=== PATIENT | female | born 1940 | race Caucasian/White ===

== ENCOUNTER 2016-03-04 09:45 | Inpatient (IN) | payer MEDICARE, OTHER ==
[~2016-03-04] VITALS: Ht 157.5 cm; Wt 38.6 kg
--- NOTE | ~2016-03-04 | HEMODYNAMI ---
PATIENT:DOMINGUEZ PEOPLES MEDICAL RECORD: [id number] : 44 LOCATION:D.ICU D.ICU- [facility]# [id number] ADMISSION DATE: 03/04/16 Generatedon:03/04/201623:14 Patient name: DOMINGUEZ PEOPLES Patient #: [id number] : 1940 Date of study: 03/04/2016 Page: Of Hemodynamic Procedure Report Patient Data Patient Demographics Procedure consent was obtained First Name: DOMINGUEZ Gender: Female Last Name: RICHELLE : 1940 [facility] Initial: Inna Age: 75 year(s) Patient #: [id number] Race: Ethnicity: or SSN: [id number] Additional ID: [id number] Contact details Address: [address] [place] [address] State: [place] City: [place] Zip code: [address] Past Medical History Allergies Allergen Reaction Date Comments Reported Other allergy 03/04/2016 Sulfa, Surgical Tape Admission Admission Data Admission Date: 03/04/2016 Admission Time: 14:55 Arrival Date: 03/04/2016 Arrival Time: 14:55 Admit Source: Other Insurance Payor: Medicare Room #: D.ICU Height (in.): 62 BSA: 1.33 (m2) Height (cm.): 157.48 BMI: 15.55 (kg/m2) Weight (lbs.): 85 Weight (kg.): 38.56 Lab Results Lab Result Date: 03/04/2016 Lab Result Time: 0:00 Biochemistry Name Units Result Min Max BUN mg/dl 12 --(-*--)-- 7 18 Creatinine mg/dl 1.1 --(--*-)-- 0.6 1.3 CBC Name Units Result Min Max Hemoglobin g/dl 12 *-(----)-- 13.5 17.5 Procedure Procedure Types Cath Procedure Diagnostic Procedure Temporary Pacemaker Procedure Description Procedure Date Procedure Date: 03/04/2016 Procedure Start Time: 22:42 Procedure End Time: 23:07 Procedure Staff Name Function Tomas Noel MD Performing Physician Kimmy Del Real RT Scrub Rojas Ruby RN Nurse Vianey Delgado RT Monitor Indication Angina Procedure Data Cath Procedure Fluoroscopy Diagnostic fluoroscopy Total fluoroscopy Time: 1.3 time: 1.3 min min Diagnostic fluoroscopy Total fluoroscopy dose: 55 dose: 55 mGy mGy Contrast Material Contrast Material Type Amount (ml) Isovue 370 0 Entry Location Entry Primary Successful Side Size Upsize Upsize Entry Closure Succes sful Closure Location (Fr) 1 (Fr) 2 (Fr) Remarks Device Remarks Femoral Right 6 Fr vein Short Femoral Right 6 Fr artery Short Procedure Medications Medication Administration Route Dosage Epinephrine I.V. 1 mg Sodium Bicarb I.V. 50 meq Epinephrine I.V. 1 mg Sodium Bicarb I.V. 50 meq Epinephrine I.V. 1 mg Hemodynamics Rest BSA: 1.33 (m2) HGB: 12 (g/dl) O2 Consumption: Estimated: 119.17 (ml/min) O2 Cons umption indexed: Estimated:89.6 (ml/min/m) Heart Rate: 65 (bpm) Snapshots Pre Cath Intra NCS Post Cath Vital Signs Time Heart Resp NIBP Rhythm Pain Sedation Rate (ipm) (mmHg) Status Level (bpm) 22:34:29 51 15 Measuring NSR 0 (11) , 10(A) No pain 22:35:51 51 23 Time NSR 0 (11) , 10(A) Exceeded No pain 22:40:50 49 15 Measuring NSR 0 (11) , 10(A) No pain 22:41:41 49 15 Time NSR 0 (11) , 10(A) Exceeded No pain 22:45:51 87 91 Time NSR 0 (11) , 10(A) Exceeded No pain 22:47:29 55 87 122/31(47) NSR 0 (11) , 10(A) No pain 22:52:28 108 38 Measuring NSR 0 (11) , 10(A) No pain 22:53:52 118 138 Time NSR 0 (11) , 10(A) Exceeded No pain 22:58:04 51 15 Time NSR 0 (11) , 10(A) Exceeded No pain 23:03:03 29 Measuring NSR 0 (11) , 10(A) No pain 23:04:27 23 Time NSR 0 (11) , 10(A) Exceeded No pain 23:09:26 27 Measuring NSR 0 (11) , 10(A) No pain 23:10:50 Time NSR 0 (11) , 10(A) Exceeded No pain Medications Time Medication Route Dose Verified Delivered Reason Notes Effectiven ess by by 22:46:18 Epinephrine I.V. 1 mg Rojas Rojas Per Tung Ruby RN physician RN 22:47:31 Sodium I.V. 50 Rojas Rojas Per Bicarb meq Tung Ruby RN physician RN 22:48:11 Epinephrine I.V. 1 mg Rojas Rojas Per Tung Ruby RN physician RN 22:50:50 Epinephrine I.V. 1 mg Rojas Rojas Per Tung Ruby RN physician RN 22:51:47 Sodium I.V. 50 Rojas Rojas Per Bicarb meq Tung Ruby RN physician scrum master Log Time Note 22:00:15 Rojas Ruby RN sent for patient. Start room use. 22:20:48 Informed consent obtained and on chart 22:20:54 Diagnostic Cath Status : Elective 22:21:15 Indication : Angina 22:21:31 Arrival Date: 03/04/2016 2:55:00 PM 22:21:39 Insurance Payor : Medicare 22:21:40 Admit Source: Other 22:22:07 Lab Result : Hemoglobin 12 g/dl 22:22:07 Lab Result : BUN 12 mg/dl 22:22:07 Lab Result : Creatinine 1.1 mg/dl 22:22:21 Time tracking: Regular hours 22:22:26 Plan of Care:Hemodynamics will remain stable., Cardiac rhythm will remain stable., Comfort level will be maintained., Respiratory function will remain adequate., Patient/ family verbilizes understanding of procedure., Procedure tolerated without complication., Recovers from procedure without complications.. 22:22:37 Patient received from ED to CCL 1 Alert and oriented. Tansferred to table in Supine position. 22:22:40 Warm blankets applied, and jaskaran hugger turned on for patient comfort. 22:22:40 Correct patient and procedure confirmed by team. 22:22:41 ECG and BP/O2 sat monitors applied to patient. 22:32:40 Vital chart was started 22:36:18 Baseline sample Acquired. 22:36:37 Full Disclosure recording started 22:36:43 H&P Date Dictated: 03/04/2016 New H&P dictated by physician.. 22:36:44 Pre-procedure instructions explained to patient. 22:36:45 Pre-op teaching completed and patient verbalized understanding. 22:36:46 Family in waiting room. 22:36:48 Patient NPO since Midnight. 22:37:05 Patient allergic to Other allergySulfa, Surgical Tape 22:37:17 Is the patient allergic to Iodine/contrast media? Unknown. 22:38:04 Patient uncosious and intubated 22:38:10 ACC The patient was administered the following blood thiners within the last 24 hours: Unknown 22:38:12 Patient diabetic? Unknown. 22:38:16 Was the patient premedicated? Unknown 22:38:17 Is patient on blood thinner?Unknown 22:38:28 Previous problem with sedation/anesthesia? Unknown ? 22:38:30 Snore? Unknown 22:38:31 Sleep apnea? Unknown 22:38:33 Deviated septum? Unknown 22:38:34 Opens mouth fully? Unknown 22:38:35 Sticks out tongue? Unknown 22:38:43 Dentures? Unknown ? 22:38:54 Pre procedure: right dorsailis pedis pulse Doppler 22:38:57 Patient pain scale 0/10 ?. 22:39:09 IV patent on arrival in right forearm, left antecubital with 0.9% NaCl at [facility]. 22:39:12 Lab results completed and on chart. 22:39:16 Bilateral groins area was prepped with chlora-prep and draped in sterile fashion 22:39:17 Alarms reviewed by R. N. 22:39:17 Sharps counted by scrub and verified by R.N. 22:40:31 Use device set Femoral PCI 22:40:33 Acist Syringe opened to sterile field. 22:40:33 Acist Hand Control opened to sterile field. 22:40:33 Bag Decanter opened to sterile field. 22:40:34 Cardinal Cath Pack opened to sterile field. 22:40:35 Terumo 6Fr [place] Sheath opened to sterile field. 22:40:35 St Tay 260cm J .035 wire opened to sterile field. 22:40:36 Merit BasixCompak Inflation Kit opened to sterile field. 22:40:36 Acist Manifold opened to sterile field. 22:40:37 Tegaderm 4 x 4 opened to sterile field. 22:41:10 Physician arrived 22:41:10 --------ALL STOP TIME OUT------ 22:41:11 Final Timeout: patient, procedure, and site verified with staff and physician. All members of the team are in agreement. 22:41:12 Bilateral groins site verified by team. 22:41:16 Physical assessment completed. ASA score P 5 - A moribund patient who is not expected to survive without the operation as per Tomas Noel MD. 22:41:19 Sedation plan: IV Moderate Sedation Versed, Fentanyl 22:42:24 Procedure started. 22:42:29 Local anesthetic to right femoral artery with Lidocaine 2% by Tomas Noel MD.INITIAL ACCESS ONLY 22:42:43 Zero performed for pressure channel P1 22:42:50 Zero performed for pressure channel P1 22:42:55 Zero performed for pressure channel P1 22:43:00 Zero performed for pressure channel P1 22:43:05 Zero performed for pressure channel P1 22:44:39 A 6 Fr Short sheath was inserted into the Right Femoral vein 22:44:51 5Fr J Tip Temporary Pacing Catheter opened to sterile field. 22:44:52 A 6 Fr Short sheath was inserted into the Right Femoral artery 22:44:53 Temporary pacer inserted 22:45:47 Dr Noel noted no cardiac motion; Began CPR 22:46:18 Epinephrine 1 mg I.V. was given by Rojas Ruby RN; Per physician; 22:47:31 Sodium Bicarb 50 meq I.V. was given by Rojas Ruby RN; Per physician; 22:48:11 Epinephrine 1 mg I.V. was given by Rojas Ruby RN; Per physician; 22:50:50 Epinephrine 1 mg I.V. was given by Rojas Ruby RN; Per physician; 22:51:47 Sodium Bicarb 50 meq I.V. was given by Rojas Ruby RN; Per physician; 22:56:52 CPR ended; Cardiac function not recovered 22:58:41 Procedure type changed to Cath procedure, Diagnostic procedure, Temporary Pacemaker 23:00:03 Patient Weight : 38.56 kg 23:00:15 Patient Height : 157.48 cm 23:06:05 Procedure ended.(Physican Out) 23:06:17 Fluoroscopy time 01.30 minutes. 23:06:27 Fluoroscopy dose: 55 mGy 23:06:27 Flurop Dose total: 55 23:06:30 Contrast amount:Isovue 370 0ml. 23:06:32 Sharps counted by scrub and verified by RDbNDb 23:07:17 Procedure and supply charges have been captured, reviewed, submitted and are correct. 23:07:22 Procedure ended. 23:07:22 Full Disclosure recording stopped 23:07:34 End room use (Document Last) 23:14:49 Vital chart was stopped Device Usage Item Name Manufacture Quantity Catalog Hospital Part Current Minimal Lot# / Number Charge Number Stock Stock Serial# Code Acist Acist 1 57535 603735 757343 [id number] 20 Syringe Medical Systems Inc Acist Hand Acist 1 66193 123265 770889 832419 5 Control Medical Systems Inc Bag Microtek 1 2002S 583729 68098 601255 5 Decanter Medical Inc. Cardinal Cardinal 1 [id number] 283150 40582 574336 5 Cath Pack Health Terumo 6Fr Terumo 1 [id number] 614162 444835 176517 [address] Tay 1 075881 599603 228953 205847 30 260cm J .035 wire Merit Merit 1 [id number] 537525 058460 000701 15 BasixCompak Medical Inflation Kit Acist Acist 1 90524 854032 657446 181109 5 Manifold Medical Systems Inc Tegaderm 4 3M 1 1626W 815521 436827 451821 5 x 4 5Fr J Tip Cortez 1 [id number] 951118 19511 605824 2 Temporary Lifesciences Pacing Catheter Signature Audit [place] Stage Time Signature Unsigned Intra-Procedure 03/04/2016 Vianey Delgado 11:14:46 PM RT(R) Signatures Monitor : Vianey Delgado RT Signature : Date : Time : [facility] [address] [facility] [place] [address]
[~2016-03-04 09:45] MED LIST: BENZONATATE200 MG PO; LIPITOR10 MG PO; NORVASC5 MG PO; PLAVIX75 MG PO; UNISOM; XANAX0.5 MG PO
[2016-03-04 11:22] LABS: BASOPHILS 0.2 % (0.0-2.0); EOSINOPHILS 0.4 % (0-7); HEMATOCRIT 37.4 % (36.0-48.0); IMMATURE GRANULOCYTES 0.2 % (0-5); LYMPHOCYTES 5.8 % (15-50); MCH 32.3 pg (26.0-34.0); MCHC 32.1 g/dL (31.0-37.0); MCV 100.8 fL (80.0-100.0); MEAN PLATELET VOLUME 9.9 fL (7.4-10.4); MONOCYTES 10.4 % (2-11); PLATELET COUNT 181 10x3/uL (130-400); RBC 3.71 10x6/uL (4.00-5.40); RDW 12.7 % (11.5-14.5); WBC 8.2 10x3/uL (4.8-10.8)
[2016-03-04 11:53] LABS: ALBUMIN 3.4 g/dL (3.4-5.0); ANION GAP 14.9 mmol/L (8-16); BILIRUBIN - TOTAL 0.7 mg/dL (0.2-1.3); CALCIUM 9.3 mg/dL (8.5-10.1); CARBON DIOXIDE 26.8 mmol/L (21.0-32.0); CREATININE - SERUM 1.1 mg/dL (0.6-1.3); POTASSIUM - SERUM 3.7 mmol/L (3.5-5.1)
[2016-03-04 18:02] LABS: CKMB 289.3 U/L (0.0-3.6)
[2016-03-04 18:10] LABS: CREATINE KINASE 1122 UL (21-215); TROPONIN-I 18.848 ng/mL (0.000-0.060)
[2016-03-04 18:28] VITALS: BP 88/62; Ht 157.5 cm; Wt 38.6 kg
--- NOTE | 2016-03-04 20:25 | NUR ---
SPOKE WITH TY HANDLEY APN CARTON STAPLER FOR DR FREGOSO, ASKED IF WE CAN CONTINUE PTS HOME MEDICATION OF XANAX, TY STATED IF ITS OK WITH DR ZUNIGA THEN ITS OK WITH HER.
--- NOTE | 2016-03-04 20:30 | NUR ---
SPOKE WITH DR ZUNIGA, STATES OK TO GIVN PTS HOME MEDICATION OF XANAX.
--- NOTE | 2016-03-04 20:42 | NUR ---
HS MEDS GIVEN, XANAX 0.5 MG GIVEN FOR ANXIEYT.
--- NOTE | 2016-03-04 21:20 | NUR ---
RT AND NURSE ENTERD ROOM TO GIVE UPDRAFT TREATMENT. PT WITH SHALLOW BREATHING AND GASPING FOR AIR, O2 AT 2 LITER VIA NC. UNABLE TO AROUSE TO VERBAL STIMULI OR STERNAL RUB, CODE BLUE CALLED.
[2016-03-04 21:39] VITALS: BP 110/73
--- NOTE | 2016-03-04 21:51 | NUR ---
SON AT NURSES STATION, NOTIFIED HIM OF CHANGE IN PT CONDITION, WALKED SON TO E.R.
[2016-03-04 22:08] LABS: BASOPHILS 0.2 % (0.0-2.0); EOSINOPHILS 0.3 % (0-7); HEMATOCRIT 35.8 % (36.0-48.0); IMMATURE GRANULOCYTES 1.5 % (0-5); LYMPHOCYTES 24.4 % (15-50); MCH 32.4 pg (26.0-34.0); MCHC 30.7 g/dL (31.0-37.0); MEAN PLATELET VOLUME 10.3 fL (7.4-10.4); MONOCYTES 4.5 % (2-11); NEUTROPHILS 69.1 % (40-80); PLATELET COUNT 191 10x3/uL (130-400); RDW 12.6 % (11.5-14.5)
[2016-03-04 22:11] LABS: MCV 105.3 fL (80.0-100.0); WBC 14.7 10x3/uL (4.8-10.8)
[2016-03-04 22:14] LABS: APTT 43.8 SECONDS (22.8-39.4); INR 1.41 (0.85-1.17); PROTIME 17.2 SECONDS (11.6-15.0)
--- NOTE | 2016-03-04 22:20 | NUR ---
PT TO COMPUTER NETWORKING INSTRUCTOR ADJUNCT AT THIS TIME,
[2016-03-04 22:34] LABS: CALCIUM 8.1 mg/dL (8.5-10.1); CHLORIDE - SERUM 101 mmol/L (98-107); CKMB 231.7 U/L (0.0-3.6); MAGNESIUM - SERUM 2.5 mg/dL (1.8-2.4); PHOSPHOROUS 8.5 mg/dL (2.5-4.9); POTASSIUM - SERUM 4.1 mmol/L (3.5-5.1); SODIUM 136 mmol/L (136-145); UREA NITROGEN 14 mg/dL (7-18)
[2016-03-04 22:37] LABS: CALC OSMOLALITY 284 mosm/kg (275-300); CREATININE - SERUM 1.6 mg/dL (0.6-1.3); GLUCOSE 318 mg/dL (74-106); eGFR NON AFRICAN AMERICAN 33 mL/min (90-120)
[2016-03-04 22:38] LABS: CREATINE KINASE 1114 UL (21-215)
[2016-03-04 22:39] LABS: CARBON DIOXIDE 8.8 mmol/L (21.0-32.0); TROPONIN-I 28.474 ng/mL (0.000-0.060)
--- NOTE | 2016-03-04 23:25 | NUR ---
THEATER MANAGER [employer] NOTIFIED OF PT
--- NOTE | 2016-03-04 23:30 | NUR ---
GISSELL NOTIFIED OF PT
--- NOTE | 2016-03-04 23:35 | NUR ---
HOME NOTIFIED OF PT
--- NOTE | 2016-03-05 00:45 | NUR ---
HOME HERE FOR PT
--- NOTE | 2016-03-05 01:19 | NUR ---
2252 PT PRONOUNCED AT THIS TIME,
--- NOTE | 2016-03-06 14:44 | EC ---
PATIENT:DOMINGUEZ PEOPLES DATE OF SERVICE: 03/04/16 SEX: F MEDICAL RECORD: [id number] DATE OF : 44 LOCATION:D.[facility] D.ICU AGE OF PATIENT: 75 ADMISSION DATE: 03/04/16 REFERRING PHYSICIAN: INTERPRETING PHYSICIAN: ISHMAEL CHAVEZ MD ECHOCARDIOGRAM REPORT ECHO CHARGES 4 ECHO COMPLETE CLINICAL DIAGNOSIS: NEW ONSET OF CHF ECHOCARDIOGRAPHIC MEASUREMENTS (adult normal given) AC root (d.<3.7cm) 2.9 LV Septum d (<1.2 cm> 1.2 Valve Excursion 1.2 LV Septum (systole) 1.4 Left Atria (s.<4.0cm> 3.6 LVPW d(<1.2cm) 1.2 RV (d.<2.3cm) 2.6 LVPW (sytole) 1.3 LV diastole(<5.6CM) 5.0 MV E-F(>70mm/sec) LV systole 4.2 LVOT Diameter 1.1 MV exc.(>10mm) 0.9 Est.ejection fraction (50-75%) Pericardial Effusion N DOPPLER: LVIT A 112 E 106 LA RVSP 55 LVOT 141 AOP1/2T Asc. Ao 154 RVOT 65 RA PA 108 AV Gradient Peak 9.47 AV Mean 4.7 AV Area 1.0 MV Gradient Peak 7.93 MV Mean 3.09 MV Area COMMENTS: Aquatic Centre Manager: Familia WALTERS Concessions Manager:Yessenia Ibarra TAPE# PACS DATE OF SERVICE: 03/04/2016 Adequate 2D echo, color flow and spectral Doppler, and M-mode. No LVH. LV internal dimensions are normal. Wall motion is mildly globally overall reduced ____ 35% to 40%. Aortic valve sclerosis without stenosis on Doppler interrogation. The left atrium is normal at 3.6 cm. Mitral valve shows no prolapse. Marked severe MR. Right-sided chamber is grossly normal. Moderate TR. TRANSINT:[id number] Voice Confirmation ID: [id number] DOCUMENT ID: [id number] ECHOCARDIOGRAM REPORT [id number] DOMINGUEZ PEOPLES ISHMAEL CHAVEZ MD at 9025 CC: [id number] DICTATION DATE: 03/04/16 1525 TUBE WRAPPER: 03/04/16 1606 DIS IN 03/04/16 [facility] [address] [place] [address]
--- NOTE | 2016-03-06 16:23 | OP ---
PATIENT NAME: DOMINGUEZ PEOPLES MEDICAL RECORD: [id number] :44 LOCATION:D.ICU D.ICU- ADMISSION DATE:03/04/16 SURGEON: MAURIZIO MORELOS MD DATE OF OPERATION: 03/04/2016 PROCEDURES: 1. Temporary pacemaker insertion. Mrs. Peoples was brought to the cardiac catheterization after a code procedure. She regained spontaneous heart rate and blood pressure; however, when on the cardiac catheterization table, she rapidly lost spontaneous heart rate and blood pressure went into PEA, temporary pacemaker was placed and she was paced for a short time. She then lost spontaneous heart rate and blood pressure, CPR was undertaken. With CPR, she did not maintain heart rate and blood pressure and on the cardiac catheterization table prior to the procedure being done. TRANSINT:[id number] Voice Confirmation ID: [id number] DOCUMENT ID: [id number] MAURIZIO MORELOS MD at 1623 CC: [id number] DICTATION DATE: 03/04/16 2300 SALES EXPERT HOME THEATER: 03/04/16 2351 DIS IN 03/04/16 [facility] [address] [place] [address]
--- NOTE | 2016-03-06 16:23 | CN ---
PATIENT NAME:DOMINGUEZ PEOPLES MEDICAL RECORD: [id number] : 44 LOCATION:D.ICUD.ICU- ADMIT DATE: 03/04/16 ACCOUNT: [id number] CONSULTING PHYSICIAN: MAURIZIO MORELOS MD REFERRING PHYSICIAN: KATELYNN FREGOSO MD DATE OF CONSULTATION: 03/04/2016 DIAGNOSES: 1. Non-Q-wave myocardial infarction. 2. Pneumonia. 3. Respiratory failure. 4. Status post code. HISTORY OF PRESENT ILLNESS: Mrs. Peoples presents with shortness of breath and respiratory failure, thought to have pneumonia and troponin came back at 18. She had chest pain last night. No chest pain today. She was stable from a respiratory standpoint, she then became agitated and quickly lost heart rate and blood pressure. ACLS measures were undertaken. She was intubated. CPR was undertaken. She was transferred to the ER. She regained spontaneous heart rate and blood pressure. She then lost it again. A second round of epinephrine and bicarbonate were given in the ER along with CPR. She once again regained spontaneous heart rate and blood pressure. She has history of peripheral vascular disease. No history of cardiac disease. No history of myocardial infarction. She has AAA repair as well as aortobifemoral. Her EKG is sinus rhythm, ST-T abnormalities and ST depression in the lateral leads. PHYSICAL EXAMINATION: GENERAL APPEARANCE: Well-nourished, well-developed, appears stated age. Level of distress, comfortable. PSYCHIATRIC: Mental status, alert, normal affect. Orientation, oriented to time, place and person. EYES: Lids and conjunctiva, noninjected. No discharge, no pallor. ENT: Lips, teeth, gums, normal dentition. Oropharynx, no cyanosis, no pallor. NECK: Carotid arteries, bilateral normal upstroke, no bruits, no thrills. JUGULAR VEINS: No jugular venous pressure or distention. CERVICAL LYMPH NODES: Nontender, nonenlarged. THYROID: Not enlarged. Nontender. No nodules. LUNGS: Respiratory effort, unlabored. CHEST: Normal curvature. No thoracic deformity. No chest wall tenderness. Percussion, resonant. Auscultation, clear. No wheezes, no rales, no rhonchi. CARDIOVASCULAR: Precordial exam, nondisplaced. No heaves or pericardial thrills. Rate and rhythm, regular. Heart sounds, normal S1, normal S2. No S3, no gallop, no rub. Systolic murmur, not heard. Diastolic murmur, not heard. EXTREMITIES: No cyanosis, no edema. Peripheral pulses, full and equal in all extremities, except as noted. No bruits appreciated. ABDOMEN: Soft, nondistended. Normal aorta. No bruit. Nontender. No masses. Liver, nontender, no hepatomegaly. Spleen, nontender, no splenomegaly. MUSCULOSKELETAL: No joint tenderness. No joint swelling. No erythema. NEUROLOGICAL: Normal gait, normal strength, normal tone. SKIN: Warm and dry. REVIEW OF SYSTEMS: The patient reports easy bruising but reports no swollen glands. The patient reports no fever, no night sweats, no significant weight gain, no significant weight loss. No significant exercise tolerance. The patient reports no dry eyes, no irritation, no vision change. Patient reports no difficulty hearing and no ear pain. Patient reports no frequent nose bleeds CONSULT REPORT [id number] DOMINGUEZ PEOPLES or nose and sinus problems. Patient reports on arm pain on exertion. No shortness of breath while lying down. No history of heart murmur. Patient reports no cough, no wheezing or coughing up blood. Patient reports no abdominal pain, no vomiting. Normal appetite. No diarrhea and not vomiting blood. No nausea and no constipation. Patient reports no incontinence. No difficulty urinating. No hematuria. No increased frequency. Patient reports no muscle aches. No weakness, no arthralgias, no back pain. No swelling of the extremities. Patient reports no abnormal mole, no jaundice, no rashes. Reports no loss of consciousness. No weakness and no numbness. No seizures, dizziness, or headaches. The patient reports no depression, no sleep disturbance, feeling safe in a relationship and no alcohol abuse. Patient reports on fatigue. Reports no runny nose or sinus pressure. No itching, no hives, and no frequent sneezing. OVERALL IMPRESSION: At this time, she does have spontaneous heart rate and blood pressure, although low. She has been stable for greater than 5 minutes. We will proceed with coronary angiography in hopes of salvage angiography, possible balloon pump insertion and possible life saving procedure from the standpoint of cardiac and myocardial ischemia. TRANSINT:[id number] Voice Confirmation ID: [id number] DOCUMENT ID: [id number] MAURIZIO MORELOS MD at 1623 CC: [id number] DICTATION DATE: 03/04/16 2259 REPAIRER HANDTOOLS: 03/05/16 0151 DIS IN 03/04/16 [place] [id number] [place] [id number]
--- NOTE | 2016-03-07 12:49 | NUR ---
PER CMS PROTOCOL, RESTRAINT REPORT LOGGED INTO DATA BASE.
--- NOTE | 2016-04-22 09:49 | DS ---
PATIENT:DOMINGUEZ PEOPLES :44 MEDICAL RECORD: [id number] DISCHARGE SUMMARY ADMISSION DATE: 03/04/16 DISCHARGE DATE: 03/04/16 Summary DATE OF ADMISSION: 03/04/2016 DATE OF DISCHARGE: 03/04/2016 HOSPITAL COURSE: This is a 75-year-old patient, who was admitted to the Emergency Department with right lower lobe pneumonia and pleural effusion with some COPD exacerbation. The patient was stable, but guarded on admission to the medical muñoz. The patient has suffered an acute myocardial infarction. The patient had a noted bump in troponin. She was taken to the medical laboratory technical officer where she suffered a cardiopulmonary arrest. ACLS protocol was instituted, CPR was started. She was intubated. She was PEA. She was given several rounds of epinephrine and bicarb. Despite aggressive measures, the patient was not successfully revived. TRANSINT:[id number] Voice Confirmation ID: [id number] DOCUMENT ID: [id number] Dictated By: KRUNAL ARRIOLA I have interviewed/examined the above patient and agree with these documented findings. KATELYNN FREGOSO MD at 1421 at 0948 CC: [id number] DICTATION DATE: 04/18/16 0832 PASSENGER BARGE MASTER: 04/18/16 2355 DIS IN 03/04/16 [place] [id number] [place] [address]
== END 2016-03-04 22:52 | DRG 208 ==
LOC: D.ER 09:45 → D.M2 14:55 → D.ICU 21:58
PROVIDERS: Emergency Medicine; Internal Medicine Interventional Cardiology; Nurse Practitioner Acute Care; ADMIT Family Medicine Adult Medicine
PROC: 5A12012 Performance of Cardiac Output, Single, Manual (ICD-10-PCS; 2016-03-04)
PROC: 0BH17EZ Insertion of Endotracheal Airway into Trachea, Via Natural or Artificial Opening (ICD-10-PCS; 2016-03-04)
PROC: 5A1223Z Performance of Cardiac Pacing, Continuous (ICD-10-PCS; 2016-03-04)
PROC: 5A12012 Performance of Cardiac Output, Single, Manual (ICD-10-PCS; principal; 2016-03-04 22:45)
PROC: 5A1935Z Respiratory Ventilation, Less than 24 Consecutive Hours (ICD-10-PCS; 2016-03-04 22:45)
DX: J96.90 Respiratory failure, unspecified, unspecified whether with hypoxia or hypercapnia (principal); J15.6 Pneumonia due to other Gram-negative bacteria; J13 Pneumonia due to Streptococcus pneumoniae; I50.23 Acute on chronic systolic (congestive) heart failure; I21.4 Non-ST elevation (NSTEMI) myocardial infarction; J44.0 Chronic obstructive pulmonary disease with (acute) lower respiratory infection; I13.0 Hypertensive heart and chronic kidney disease with heart failure and stage 1 through stage 4 chronic kidney disease, or unspecified chronic kidney disease; F17.203 Nicotine dependence unspecified, with withdrawal; J90 Pleural effusion, not elsewhere classified; J44.1 Chronic obstructive pulmonary disease with (acute) exacerbation; Z68.1 Body mass index [BMI] 19.9 or less, adult; D64.9 Anemia, unspecified; Z86.73 Personal history of transient ischemic attack (TIA), and cerebral infarction without residual deficits; I65.23 Occlusion and stenosis of bilateral carotid arteries; I27.2 Other secondary pulmonary hypertension; I07.1 Rheumatic tricuspid insufficiency; I25.10 Atherosclerotic heart disease of native coronary artery without angina pectoris; I73.9 Peripheral vascular disease, unspecified; J01.90 Acute sinusitis, unspecified; E11.22 Type 2 diabetes mellitus with diabetic chronic kidney disease; N18.2 Chronic kidney disease, stage 2 (mild); R63.6 Underweight